=== PATIENT | female | born 1975 | race Two or more races ===

== ENCOUNTER 2022-12-16 09:14 | Emergency (ER) | payer OTHER, SELFPAY ==
[2022-12-16 09:40] VITALS: BP 141/67; PULSE 75; RESP 17; TEMP 36.7; O2SAT 99; BMI 25.7
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
== END 2022-12-16 11:07 | disposition home or self-care (01) ==
PROVIDERS: Emergency Provider Emergency Medicine
DX: M54.50 Low back pain, unspecified (principal); M54.6 Pain in thoracic spine; Z79.899 Other long term (current) drug therapy
CPT/HCPCS: 99282; 99283